=== PATIENT | male | born 1980 | race Two or more races ===

== ENCOUNTER 2024-07-09 07:39 | Emergency (ER) | payer MEDICAID, SELFPAY ==
--- NOTE | 2024-07-09 07:42 | EKG_ITS ---
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
[2024-07-09 07:52] VITALS: BP 162/122; BP 169/109; PULSE 88; RESP 18; TEMP 36.7; O2SAT 97; BMI 31.9
--- NOTE | 2024-07-09 08:08 | XR_ITS ---
Examination: PA lateral chest 2 views TECHNIQUE: Upright PA lateral chest 2 views Exam date and time: July 09, 2024 0818 hours INDICATIONS: Chest pain beginning 3 days ago. FINDINGS: Normal heart size. Lungs are clear. The osseous structures are intact IMPRESSION: No active disease
[2024-07-09] MEDS: ALPRazoLAM 0.25 MG TABLET PO (08:16)
[2024-07-09 08:51] LABS: Basophils % (Auto) 0 % (0-2.5); Eosinophils % (Auto) 0 % (0-10); Hematocrit 52.3 % (41.0-53.0); Immature Granulocytes % (Auto) 0 % (0-0); Immature Granulocytes Auto 0.02 Thou/mm3 (0.00-0.00); Lymphocytes # (Auto) 1.7 Thou/mm3 (1.0-4.8); Lymphocytes % (Auto) 17 % (10-50); Mean Corpuscular HGB Conc 34.4 g/dl (31.0-37.0); Mean Corpuscular Hemoglobin 30.9 pg (25.0-35.0); Mean Corpuscular Volume 90 fL (80-100); Monocytes # (Auto) 0.7 Thou/mm3 (0.0-0.8); Monocytes % (Auto) 7 % (0-12); Neutrophils # (Auto) 7.8 Thou/mm3 (1.8-7.7); Neutrophils % (Auto) 76 % (37-80); Nucleated Red Blood Cell % 0 /100 WBC (0); Platelet Count 274 Thou/mm3 (140-440); RDW Standard Deviation 42.8 fL (35.1-43.9); Red Blood Count 5.83 Miln/mm3 (4.50-5.90); White Blood Count 10.3 Thou/mm3 (3.8-10.6)
[2024-07-09 09:06] LABS: Alanine Aminotransferase 27 U/L (10-49); Albumin, Serum 5.1 gm/dL (3.5-5.0); Albumin/Globulin Ratio 1.7 (1.2-2.2); Alkaline Phosphatase 87 U/L (46-116); Anion Gap 11 (7-16); Aspartate Amino Transferase 19 U/L (0-34); BUN/Creatinine Ratio 16 Ratio (12-20); Bilirubin,Total 1.3 mg/dL (0.3-1.2); Blood Urea Nitrogen 16 mg/dL (9-23); Calcium 10.3 mg/dL (8.3-10.6); Calcium (Corrected) 10.3 mg/dL (8.5-10.1); Carbon Dioxide 26.1 mMol/L (20.0-31.0); Chloride 103 mMol/L (98-107); Estimated Creatinine Clearance 104.4 mL/min (>60); Glucose 113 mg/dL (74-106); Osmolality,Calculated 281 (275-295); Potassium 3.9 mMol/L (3.4-5.1); Sodium 140 mMol/L (136-145); Total Protein 8.1 gm/dL (5.7-8.2); Troponin I < 0.002 ng/mL (0.0-0.045); eGFR > 60 See Note
--- NOTE | 2024-07-09 09:25 | PD.EDADULT ---
ED General RME/HPI General Chief complaint: Chest Pain Stated complaint: ABD/CHEST/BACK PAIN, N/V, ANXIETY Time Seen by Provider: 07/09/24 08:07 Arrival date/time: 07/09/24 07:39 43-year-old male with history of hypertension presents to the emergency department today for complaints of chest pressure and anxiety patient reports he got a lot going on his life and patient is currently tearful Limitations: no limitations Related Data Previous Rx's ?Medication ?Instructions ?Recorded hydrocortisone 2.5 % topical cream 1 applic topical TID PRN rash 08/09/22 #28.35 grams albuterol sulfate 90 mcg/actuation 1 puff inhalation QID PRN 03/03/23 aerosol inhaler shortness of breath or wheezing #8.5 grams dexamethasone 6 mg tablet 6 mg PO QDAY #7 tabs 03/03/23 guaifenesin 1,200 mg tablet, 1,200 mg PO BID PRN cough #20 tabs 03/03/23 extended release 12 hr (Mucinex) ondansetron 4 mg disintegrating 4 mg PO Q8H PRN nausea and 07/24/23 tablet vomiting #10 tabs ibuprofen 600 mg tablet 600 mg PO Q8H PRN pain #20 tabs 01/10/24 Allergies Allergy/AdvReac Type Severity Reaction Status Date / Time No Known Allergies Allergy Verified 10/06/21 20:09 Review of Systems Review of Systems Systems Reviewed: All systems reviewed, normal except as documented Constitutional Constitutional: Reports system reviewed and no additional complaints, except as documented, Denies fever(s) and Denies headache(s) Eyes Eyes: Reports system reviewed and no additional complaints, except as documented and Denies blurry vision ENT Ears, Nose, Mouth, and Throat: Reports system reviewed and no additional complaints, except as documented, Denies headache(s), Denies nasal congestion and Denies nasal discharge Cardiovascular Cardiovascular: Reports system reviewed and no additional complaints, except as documented, Reports chest pain and Denies dyspnea Respiratory Respiratory: Reports system reviewed and no additional complaints, except as documented, Denies chest congestion, Denies cough and Denies dyspnea Gastrointestinal Gastrointestinal: Reports system reviewed and no additional complaints, except as documented and Denies abdominal pain Integumentary/Breasts Skin/Breast: Reports system reviewed and no additional complaints, except as documented and Denies rash Neurologic Neurologic: Reports system reviewed and no additional complaints, except as documented, Reports as per HPI and Denies headache(s) Psychiatric Psychiatric: Reports system reviewed and no additional complaints, except as documented and Reports anxiety Past Medical History Past Medical History CARDIAC: Negative Cardiac Disorders or Congestive Heart Failure RESPIRATORY: Negative Chronic Obstructive Pulmonary Disease (COPD) or Asthma GENITOURINARY: Negative Renal Disease MUSCULOSKELETAL: Positive Musculoskeletal Disorders ENDOCRINE: Negative Diabetes Mellitus Type 1 or Diabetes Mellitus Type 2 HEMATOLOGIC: Negative Sickle Cell Disease Surgical History SURGICAL: Positive Oral Surgery Social History SMOKING STATUS: Never smoker ED Exam General Limitations: Present no limitations General appearance: Present alert and in no apparent distress Head Head exam: Present atraumatic Eye Eye exam: Present normal appearance, PERRL and EOMI; Absent conjunctival injection ENT ENT exam: Present normal exam, normal oropharynx and mucous membranes moist Neck Neck exam: Present normal inspection, full ROM and trachea midline Chest Chest inspection: Present normal inspection and symmetric chest wall rise Respiratory Respiratory exam: Present normal lung sounds bilaterally; Absent respiratory distress, wheezes, stridor, accessory muscle use or prolonged expiratory phase Cardiovascular Cardiovascular exam: Present regular rate, normal rhythm and normal heart sounds; Absent bradycardia, tachycardia or irregular rhythm Abdominal Exam Abdominal exam: Present soft and normal bowel sounds; Absent distention, tenderness, guarding, rebound or rigidity Extremities Exam Extremities exam: Present normal inspection and full ROM Back Exam Back exam: Present normal inspection and full ROM Neurological Exam Neurological exam: Present alert, oriented X3 and CN II-XII intact Psychiatric Psychiatric exam: Present anxious (Tearful); Absent manic, homicidal ideation or suicidal ideation Skin Skin exam: Present warm, dry, intact and normal color Course Quality Measures none Orders Category Date Time Status EKG (ED ONLY) *Do not use* NOW Care 07/09/24 07:42 Completed EKG (ED Only) Stat Exams 07/09/24 07:42 Draft XR chest 2V Stat Exams 07/09/24 08:08 Completed CBC Stat Lab 07/09/24 08:30 Completed Comprehensive Metabolic Panel Stat Lab 07/09/24 08:30 Completed Drug Screen,Urine Stat Lab 07/09/24 08:18 Completed Troponin I Stat Lab 07/09/24 08:30 Completed ALPRazoLAM [Xanax] Med 07/09/24 08:08 Discontinued 0.25 mg PO X1 ONE Vital Signs Vital signs: Vital Signs Temperature 98.1 F 07/09/24 07:52 Pulse Rate 88 07/09/24 07:52 Respiratory Rate 18 07/09/24 07:52 Blood Pressure 169/109 H 07/09/24 07:52 Pulse Oximetry (%) 97 07/09/24 07:52 Oxygen Delivery Method Room Air 07/09/24 07:52 O2 saturation 97% room air within normal limits Procedures -ED EKG Interpretation #1: Date of EK07/09/24 Time of EK:49 Rate: 98 Interpretation: Interpreted by me EKG Impression: Normal sinus rhythm, No acute ST-T changes, No ectopy, No ischemic changes, Normal QRS, Normal intervals and Normal axis Discharge Plan Plan Patient Disposition: HOME (Self Care) Disposition Comment: Stable Prescriptions/Referrals Prescriptions/Med Rec: No Action hydrocortisone 2.5 % cream 1 applic topical TID PRN (Reason: rash) Qty: 28.35 0RF dexamethasone 6 mg tablet 6 mg PO QDAY Qty: 7 0RF guaifenesin [Mucinex] 1,200 mg tablet extended release 12hr 1,200 mg PO BID PRN (Reason: cough) Qty: 20 0RF albuterol sulfate 90 mcg/actuation HFA aerosol inhaler 1 puff inhalation QID PRN (Reason: shortness of breath or wheezing) Qty: 8.5 0RF ibuprofen 600 mg tablet 600 mg PO Q8H PRN (Reason: pain) Qty: 20 0RF ondansetron 4 mg tablet,disintegrating 4 mg PO Q8H PRN (Reason: nausea and vomiting) Qty: 10 0RF Referrals: Brian Marshall PA-C [Primary Care Provider] - In 1 week Problem List Clinical Impression: Stress reaction, Chest pain, Hypertension Patient/Caregiver Discharge Instructions Additional Instructions: Please follow up with your primary care doctor in the next 24-48hrs for any worsening symptoms return here immediately Please see your PCP request to be started on a blood pressure medication Print Language: Bengali Stand Alone Forms: Gaby Award Info., Work/School Release, Patient Portal Info Letter PA/TIP CEMENTER Supervising Physician PA/MARY Supervising Physician: Dr dewitt [facility] Patient Acuity Narrative: 43-year-old male with history of hypertension presents to the emergency department today for complaints of chest pressure and anxiety patient reports he got a lot going on his life and patient is currently tearful On exam patient does not appear ill or toxic in no acute distress Chest x-ray EKG and lab work obtained no acute emergent findings noted Patient given Xanax which decreased his blood pressure and made him less anxious Patient discharged home in no distress to follow-up with primary care doctor in the next 24 to 48 hours and for any worsening symptoms to return to the ER immediately Medical Records reviewed [facility] Labs/Rad/Tests considered, not ordered None Chronic Illness/Social Conditions which may negatively complicate care or outcome(s)-explain: None or not applicable EKG EKG Interpretation(s): EKG obtained Labs Labs: Interpreted by me Imaging Imaging interpretation: Interpreted by me Medication Administration(s) Medication Administration History Discontinued Medications Alprazolam (Alprazolam 0.25 Mg Tablet) 0.25 mg PO X1 ONE Stop: 07/09/24 08:09 Last Admin: 07/09/24 08:16 Dose: 0.25 mg Documented By: KATARINA Given Diagnosis Differential Diagnosis ED Complaint MDM: Anxiety, stress reaction, depression
[2024-07-09 09:27] LABS: Amphetamine/Methamp Scrn,U Negative (Negative); Barbiturate Screen,Urine Negative (Negative); Benzodiazepines Screen,Urine Negative (Negative); Benzoylecgonine Screen, Ur Negative (Negative); Fentanyl Screen,Urine Negative (Negative); Opiate Screen,Urine Positive (Negative); THC Screen,Urine Positive (Negative)
[2024-07-09 09:54] VITALS: BP 139/104; PULSE 76; RESP 16; TEMP 36.7; O2SAT 99
== END 2024-07-09 09:54 | disposition home or self-care (01) ==
PROVIDERS: Nurse Practitioner Primary Care; Emergency Provider Emergency Medicine; PCP Physician Assistant
DX: R07.89 Other chest pain (principal); F43.9 Reaction to severe stress, unspecified; I10 Essential (primary) hypertension
CPT/HCPCS: 36415; 71046; 80053; 80307; 84484; 85025; 93005; 99283; A9270

== ENCOUNTER 2024-08-07 04:42 | Emergency (ER) | payer MEDICAID, SELFPAY ==
[2024-08-07 04:42] VITALS: BMI 31.0
--- NOTE | 2024-08-07 04:47 | EKG_ITS ---
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
[2024-08-07 04:49] VITALS: BP 159/102; BP 165/111; PULSE 78; RESP 18; TEMP 36.6; O2SAT 98
[2024-08-07] MEDS: DIAZEPAM 5 MG TABLET 10 MG PO (05:28)
--- NOTE | 2024-08-07 05:32 | PD.EDANX ---
ED Anxiety RME/HPI General Chief Complaint: Anxiety Stated Complaint: ANXIETY ATTACK Time Seen by Provider: 08/07/24 05:25 Arrival date/time: 08/07/24 04:42 43M with history of anxiety/panic disorder presents to ED with panic attack. Patient had CP earlier today, but that is no longer present. Patient didn't take his normal psych meds yesterday because he didn't want to. Patient denies SI/HI. Patient declines other diagnostics and just wants meds. Patient doesn't want to wait for meds to make him feel better because he states the hospital makes him more anxious. Limitations: no limitations Related Data Previous Rx's ?Medication ?Instructions ?Recorded hydrocortisone 2.5 % topical cream 1 applic topical TID PRN rash 08/09/22 #28.35 grams albuterol sulfate 90 mcg/actuation 1 puff inhalation QID PRN 03/03/23 aerosol inhaler shortness of breath or wheezing #8.5 grams dexamethasone 6 mg tablet 6 mg PO QDAY #7 tabs 03/03/23 guaifenesin 1,200 mg tablet, 1,200 mg PO BID PRN cough #20 tabs 03/03/23 extended release 12 hr (Mucinex) ondansetron 4 mg disintegrating 4 mg PO Q8H PRN nausea and 07/24/23 tablet vomiting #10 tabs ibuprofen 600 mg tablet 600 mg PO Q8H PRN pain #20 tabs 01/10/24 Allergies Allergy/AdvReac Type Severity Reaction Status Date / Time No Known Allergies Allergy Verified 10/06/21 20:09 Review of Systems Review of Systems Systems Reviewed: All systems reviewed, normal except as documented Constitutional Constitutional: Reports system reviewed and no additional complaints, except as documented, Denies fever(s) and Denies headache(s) ENT Ears, Nose, Mouth, and Throat: Denies disequilibrium and Denies headache(s) Cardiovascular Cardiovascular: Reports system reviewed and no additional complaints, except as documented, Reports as per HPI, Reports chest pain and Denies dyspnea Respiratory Respiratory: Reports system reviewed and no additional complaints, except as documented, Denies cough and Denies dyspnea Gastrointestinal Gastrointestinal: Reports system reviewed and no additional complaints, except as documented, Denies abdominal pain, Denies nausea and Denies vomiting Neurologic Neurologic: Reports system reviewed and no additional complaints, except as documented, Denies confusion, Denies disequilibrium and Denies headache(s) Psychiatric Psychiatric: Reports as per HPI, Reports anxiety, Denies confusion and Reports panic attacks Past Medical History Past Medical History CARDIAC: Negative Cardiac Disorders or Congestive Heart Failure RESPIRATORY: Negative Chronic Obstructive Pulmonary Disease (COPD) or Asthma GENITOURINARY: Negative Renal Disease MUSCULOSKELETAL: Positive Musculoskeletal Disorders ENDOCRINE: Negative Diabetes Mellitus Type 1 or Diabetes Mellitus Type 2 HEMATOLOGIC: Negative Sickle Cell Disease Surgical History SURGICAL: Positive Oral Surgery Social History SMOKING STATUS: Former smoker ED Exam General Limitations: Present no limitations General appearance: Present alert, in no apparent distress and anxious Head Head exam: Present atraumatic Eye Eye exam: Present normal appearance, PERRL and EOMI ENT ENT exam: Present normal exam, normal oropharynx and mucous membranes moist Neck Neck exam: Present normal inspection, full ROM and trachea midline Chest Chest inspection: Present normal inspection and symmetric chest wall rise Respiratory Respiratory exam: Present normal lung sounds bilaterally Cardiovascular Cardiovascular exam: Present regular rate, normal rhythm and normal heart sounds Abdominal Exam Abdominal exam: Present soft and normal bowel sounds Extremities Exam Extremities exam: Present normal inspection and full ROM Back Exam Back exam: Present normal inspection and full ROM Neurological Exam Neurological exam: Present alert, oriented X3 and CN II-XII intact Psychiatric Psychiatric exam: Present normal affect and normal mood Skin Skin exam: Present warm, dry, intact and normal color Course Quality Measures none Orders Category Date Time Status EKG (ED ONLY) *Do not use* NOW Care 08/07/24 04:47 Completed EKG (ED Only) Stat Exams 08/07/24 04:47 Draft Diazepam [Valium] Med 08/07/24 05:21 Discontinued 10 mg PO X1 ONE Vital Signs Vital signs: Vital Signs Temperature 97.8 F 08/07/24 04:49 Pulse Rate 78 08/07/24 04:49 Respiratory Rate 18 08/07/24 04:49 Blood Pressure 159/102 H 08/07/24 04:49 Pulse Oximetry (%) 98 08/07/24 04:49 Oxygen Delivery Method Room Air 08/07/24 04:49 Anxiety MDM Narrative MDM Narrative: 43M with history of anxiety/panic disorder presents to ED with panic attack. Patient had CP earlier today, but that is no longer present. Patient didn't take his normal psych meds yesterday because he didn't want to. Patient denies SI/HI. Patient declines other diagnostics and just wants meds. Patient doesn't want to wait for meds to make him feel better because he states the hospital makes him more anxious. Physical exam reveals clear lungs. RRR. Patient is afebrile, alert, but anxious. EKG is NSR. Meds and psychosocial rehabilitation counselor given. Patient data External records reviewed:: [facility] previous records Clinical information provided by:: patient Social determinants that could affect healthcare access:: mental health Patient has the following chronic illnesses:: anxiety/panic disorder How is presenting disease/condition affected by chronic disease/condition?: caused by Evaluation data The following diagnostics were reviewed and interpreted by me:: EKG tracing(s) Lab and/or radiology exams considered but not ordered:: ordered Interpretation Summary: above Medications / Prescriptions Medications or Prescriptions considered but not ordered:: ordered Medication administrations:: Medication Administration History Discontinued Medications Diazepam (Diazepam 5 Mg Tablet) 10 mg PO X1 ONE Stop: 08/07/24 05:22 Last Admin: 08/07/24 05:28 Dose: 10 mg Documented By: CB Consultations Consultation(s) initiated? (list below): No Diagnosis Differential diagnosis anxiety: hyperventilation, panic disorder and acute anxiety Most likely diagnosis given after review of the tests above:: panic attack Admission Indicated Admission indicated?: not indicated Admission Request Was there a request for admission?: No Disposition Plan Disposition Plan: Discharge Discharge Attestation Discharge Attestation: The patient and all family members were given an opportunity to ask questions and understood the discharge instructions. Discharge instructions specifically effects, indications for sooner follow up or return to the emergency department, and the expected course of current diagnosis. Patient condition: Stable Discharge Plan Plan Patient Disposition: HOME (Self Care) Discharge Disposition comment: Stable Prescriptions/Referrals Prescriptions/Med Rec: No Action hydrocortisone 2.5 % cream 1 applic topical TID PRN (Reason: rash) Qty: 28.35 0RF dexamethasone 6 mg tablet 6 mg PO QDAY Qty: 7 0RF guaifenesin [Mucinex] 1,200 mg tablet extended release 12hr 1,200 mg PO BID PRN (Reason: cough) Qty: 20 0RF albuterol sulfate 90 mcg/actuation HFA aerosol inhaler 1 puff inhalation QID PRN (Reason: shortness of breath or wheezing) Qty: 8.5 0RF ibuprofen 600 mg tablet 600 mg PO Q8H PRN (Reason: pain) Qty: 20 0RF ondansetron 4 mg tablet,disintegrating 4 mg PO Q8H PRN (Reason: nausea and vomiting) Qty: 10 0RF Referrals: Temporary Provider,ED [Primary Care Provider] - In 1 week Problem List Clinical Impression: Panic attack Patient/Caregiver Discharge Instructions Education Materials: ED Panic Attack Additional Instructions: Please follow-up with PCP within 24-48 hours and return immediately if symptoms worsen. Make sure to take your daily psych meds. Print Language: Thai Stand Alone Forms: Patient Portal Info Letter PA/LUMBER CARRIER OPERATOR Supervising Physician PA/LUMBER CARRIER OPERATOR Supervising Physician: Dr. Brady
== END 2024-08-07 05:32 | disposition home or self-care (01) ==
LOC: SERX 05:34
PROVIDERS: Emergency Provider Emergency Medicine; PCP Physician Assistant
DX: F41.0 Panic disorder [episodic paroxysmal anxiety] (principal)
CPT/HCPCS: 93005; 99283; A9270

== ENCOUNTER 2024-11-15 06:02 | Emergency (ER) | payer MEDICAID, SELFPAY ==
[2024-11-15 06:03] VITALS: BP 155/84; PULSE 76; RESP 19; TEMP 36.5; O2SAT 97; BMI 31.7
[2024-11-15 06:06] VITALS: BMI 28.8
--- NOTE | 2024-11-15 06:38 | PD.EDRME ---
Rapid Medical Screening Exam RME Arrival date/time: 11/15/24 06:02 This is a 44 year old male with nausea, vomiting, abdominal pain that started 2 days ago. Pt states he thinks he might have eaten something that upset his stomach. pt reports hx of htn. I have greeted and performed a focused initial assessment of this patient. Initial appropriate labs ordered at this time. A comprehensive ED assessment and evaluation of the patient and analysis of all test and completion of medical decision making process will be conducted by additional ED provider. Chief Complaint: Abdominal Pain Time Seen by Provider: 11/15/24 06:16 Vital signs: Vital Signs Temperature 97.7 F 11/15/24 06:03 Pulse Rate 76 11/15/24 06:03 Respiratory Rate 19 11/15/24 06:03 Blood Pressure 155/84 H 11/15/24 06:03 Pulse Oximetry (%) 97 11/15/24 06:03 Oxygen Delivery Method Room Air 11/15/24 06:03
[2024-11-15 07:11] LABS: Collection Type, Urine Voided
[2024-11-15 07:16] LABS: Basophils # (Auto) 0.0 Thou/mm3 (0.0-0.2); Basophils % (Auto) 0 % (0-2.5); Eosinophils # (Auto) 0.0 Thou/mm3 (0.0-0.5); Eosinophils % (Auto) 0 % (0-10); Hematocrit 47.9 % (41.0-53.0); Hemoglobin 16.2 g/dL (13.5-16.0); Immature Granulocytes Auto 0.01 Thou/mm3 (0.00-0.00); Lymphocytes # (Auto) 1.3 Thou/mm3 (1.0-4.8); Lymphocytes % (Auto) 16 % (10-50); Mean Corpuscular HGB Conc 33.8 g/dl (31.0-37.0); Mean Corpuscular Hemoglobin 31.3 pg (25.0-35.0); Mean Corpuscular Volume 93 fL (80-100); Monocytes # (Auto) 0.5 Thou/mm3 (0.0-0.8); Monocytes % (Auto) 6 % (0-12); Neutrophils # (Auto) 6.0 Thou/mm3 (1.8-7.7); Neutrophils % (Auto) 76 % (37-80); Nucleated Red Blood Cell # 0.00 Thou/mm3 (0.00-0.00); Nucleated Red Blood Cell % 0 /100 WBC (0); Platelet Count 220 Thou/mm3 (140-440); RDW Standard Deviation 42.8 fL (35.1-43.9); Red Blood Count 5.18 Miln/mm3 (4.50-5.90); White Blood Count 7.9 Thou/mm3 (3.8-10.6)
[2024-11-15] MEDS: ONDANSETRON ODT 4 MG TABRAP PO (07:16)
[2024-11-15 07:30] LABS: Amphetamine/Methamp Scrn,U Negative (Negative); Barbiturate Screen,Urine Negative (Negative); Benzodiazepines Screen,Urine Negative (Negative); Benzoylecgonine Screen, Ur Negative (Negative); Fentanyl Screen,Urine Negative (Negative); Opiate Screen,Urine Positive (Negative); THC Screen,Urine Positive (Negative)
[2024-11-15 07:49] LABS: Bilirubin,Urine Negative (Negative); Blood,Urine Negative (Negative); Clarity,Urine Clear (Clear/Hazy); Color,Urine Yellow (Lt Yel-Yel); Culture Indicated,Urine Not Indicated; Glucose, Urine Negative (Negative); Ketones,Urine Negative (Negative); Leukocyte Esterase,Urine Negative (Negative); Nitrite,Urine Negative (Negative); PH,Urine 6.0 (5.0-7.0); Protein,Urine Trace (Neg - Trace); RBC,Urine 1 /hpf (0-3); Specific Gravity,Urine 1.029 (1.001-1.035); Squamous Epithelial Cell,Urine < 1 /hpf (0-5); Transitional Epi Cells,Urine < 1 /hpf (0-5); Urobilinogen,Urine Negative mg/dL (0.0-1.0); WBC,Urine < 1 /hpf (0-5)
[2024-11-15 08:14] LABS: Alanine Aminotransferase 18 U/L (10-49); Albumin, Serum 4.6 gm/dL (3.5-5.0); Albumin/Globulin Ratio 1.9 (1.2-2.2); Alkaline Phosphatase 79 U/L (46-116); Anion Gap 11 (7-16); Aspartate Amino Transferase 18 U/L (0-34); BUN/Creatinine Ratio 13 Ratio (12-20); Bilirubin,Total 1.1 mg/dL (0.3-1.2); Blood Urea Nitrogen 12 mg/dL (9-23); Calcium 9.7 mg/dL (8.3-10.6); Calcium (Corrected) 9.7 mg/dL (8.5-10.1); Carbon Dioxide 25.3 mMol/L (20.0-31.0); Chloride 106 mMol/L (98-107); Creatinine (Component) 0.9 mg/dL (0.6-1.3); Estimated Creatinine Clearance 109.5 mL/min (>60); Globulin 2.4 gm/dL (2.3-3.5); Glucose 143 mg/dL (74-106); Lipase 40 U/L (12-53); Osmolality,Calculated 284 (275-295); Potassium 4.2 mMol/L (3.4-5.1); Sodium 142 mMol/L (136-145); Total Protein 7.0 gm/dL (5.7-8.2); eGFR > 60 See Note
--- NOTE | 2024-11-15 09:42 | PC.NURSE ---
CAME TO TRIAGE DESK TO SAY HE WAS LEAVING AND WALKED OUT
== END 2024-11-15 09:42 | disposition left against medical advice (07) ==
LOC: SERX 07:54
PROVIDERS: Nurse Practitioner Family; Emergency Provider Emergency Medicine
DX: R11.2 Nausea with vomiting, unspecified (principal); R10.9 Unspecified abdominal pain; Z53.21 Procedure and treatment not carried out due to patient leaving prior to being seen by health care provider
CPT/HCPCS: 36415; 80053; 80307; 81001; 83690; 85025; 87400; 87811; 99283; Q0162